=== PATIENT | male | born 1985 | race Caucasian/White ===

== ENCOUNTER 2017-04-06 18:41 | Emergency (ER) | payer SELFPAY ==
[2017-04-06] MEDS ORDERED: Sodium Chloride 0.9% 1,000 ML IV ONE (19:05)
--- NOTE | 2017-04-06 19:05 | EDM.PDOC ---
ED HPI GENERAL MEDICAL PROBLEM - General Chief Complaint: Abdominal Pain Stated Complaint: ABDOMINAL PAIN AND VOMITING Time Seen by Provider: 04/06/17 18:57 Source of Information: Reports: Patient History Limitations: Reports: No Limitations - History of Present Illness INITIAL COMMENTS - FREE TEXT/NARRATIVE: HISTORY AND PHYSICAL: History of present illness: [Patient comes to the emergency room complaining of right upper quadrant and epigastric abdominal pain. Thinks that he has pancreatitis. History of pancreatitis a couple of years ago and current symptoms are the same. His abdomen hasn't felt right for the past month but over the last week his symptoms have worsened. He drank "only a 6 pack" yesterday and has not had anything to drink today and overall feels worse. No fever or chills. He is vomiting bile and also having loose bilious stools. Has felt feverish and chilled but has not checked his temperature. No earaches sore throat or headache. No dizziness or fainting. No chest pain shortness of breath or difficulty breathing. No cough. Denies body aches, muscle and joint aches or pains. He admits to daily alcohol use 6-12 cans of beer on a workday, 12-18 beers on a weekend. States that he's been drinking a lot more than usual the past couple of weeks. Smokes one pack cigarettes daily] Review of systems: As per history of present illness and below otherwise all systems reviewed and negative. Past medical history: As per history of present illness and as reviewed below otherwise noncontributory. Surgical history: As per history of present illness and as reviewed below otherwise noncontributory. Social history: No reported history of drug or alcohol abuse. Family history: As per history of present illness and as reviewed below otherwise noncontributory. Physical exam: HEENT: Atraumatic, normocephalic. Oral mucous membranes moist, throat clear, neck supple, nontender, no lymphadenopathy. Lungs: Clear to auscultation, breath sounds equal bilaterally. Heart: S1S2, regular, negative for clicks, rubs, or JVD. Abdomen: Bowel sounds are normoactive throughout. Abdomen is soft and nondistended. Diffusely tender throughout his entire abdomen. No masses guarding or rebound. Back: Tender with percussion to right midthoracic back and right CVA. Pelvis: Stable nontender. Genitourinary: Deferred. Rectal: Deferred. Extremities: Atraumatic, negative for cords or calf pain. No swelling or tenderness. Neurovascular unremarkable. Neuro: Awake, alert, oriented. Motor and sensory unremarkable throughout. Exam nonfocal. Diagnostics: [CBC, CMP, UA, amylase, lipase, CT abdomen and pelvis with contrast] Therapeutics: [Toradol 30 mg IV, Zofran 4 mg IV, 1 L normal saline bolus, MS 4mg IV] Impression: [generalized abdominal pain] Plan: [CBC, CMP, UA, lactic acid, lipase, amylase are WNL. CT abdomen and pelvis with contrast shows no abnormalities. Discussed with patient that we'll discharge him to home with instructions to push fluids, avoid alcohol, avoid greasy, fatty foods and gradually increase diet as feeling improved. Strict return precautions are discussed with patient. He is in agreement with today's plan. All questions are answered and concerns are addressed.] Definitive disposition and diagnosis as appropriate pending reevaluation and review of above. Right Middle Abdominal Pain Score (Numeric/FACES): 7 - Related Data Allergies Allergy/AdvReac Type Severity Reaction Status Date / Time No Known Allergies Allergy Verified 04/06/17 18:51 Home Meds: Home Meds . [No Known Home Meds] 04/06/17 [History] ED ROS GENERAL - Review of Systems Review Of Systems: ROS reveals no pertinent complaints other than HPI. ED EXAM, GI/ABD - Physical Exam Exam: See Below Course - Vital Signs Last Recorded V/S: Last Vital Signs Temp 97.5 F 04/06/17 21:04 Pulse 83 04/06/17 21:04 Resp 16 04/06/17 21:04 BP 123/90 04/06/17 21:04 Pulse Ox 98 04/06/17 21:04 - Orders/Labs/Meds Orders: Active Orders 24 hr Category Date Time Status Abdomen Pelvis w Cont [CT] Stat Exams 04/06/17 19:21 Taken Labs: Laboratory Tests 04/06/17 04/06/17 04/06/17 Range/Units 19:05 19:18 19:18 WBC 6.65 (4.0-11.0) K/uL RBC 5.80 (4.50-5.90) M/uL Hgb 16.5 (13.0-17.0) g/dL Hct 46.8 (38.0-50.0) % MCV 80.7 (80.0-98.0) fL MCH 28.4 (27.0-32.0) pg MCHC 35.3 (31.0-37.0) g/dL RDW Std Deviation 39.7 (28.0-62.0) fl RDW Coeff of Liliana 13 (11.0-15.0) % Plt Count 266 (150-400) K/uL MPV 9.90 (7.40-12.00) fL Neut % (Auto) 77.0 (48.0-80.0) % Lymph % (Auto) 14.9 L (16.0-40.0) % [place] % (Auto) 6.6 (0.0-15.0) % Eos % (Auto) 1.2 (0.0-7.0) % Baso % (Auto) 0.3 (0.0-1.5) % Neut # (Auto) 5.1 (1.4-5.7) K/uL Lymph # (Auto) 1.0 (0.6-2.4) K/uL [place] # (Auto) 0.4 (0.0-0.8) K/uL Eos # (Auto) 0.1 (0.0-0.7) K/uL Baso # (Auto) 0.0 (0.0-0.1) K/uL Nucleated RBC % 0.0 /100WBC Nucleated RBCs # 0 K/uL Lactate (0.20-2.00) mmol/L Sodium 138 (136-146) mmol/L Potassium 4.1 (3.5-5.1) mmol/L Chloride 104 (98-110) mmol/L Carbon Dioxide 24 (21-31) mmol/L BUN 11 (6.0-23.0) mg/dL Creatinine 0.9 (0.6-1.5) mg/dL Est Cr Clr Drug Dosing 112.21 mL/min Estimated GFR (MDRD) > 60.0 ml/min Glucose 95 (60-110) mg/dL Calcium 10.0 (8.8-10.8) mg/dL Total Bilirubin 0.8 (0.1-1.5) mg/dL AST 29 (5-40) IU/L ALT 26 (8-54) IU/L Alkaline Phosphatase 64 (40-150) Total Protein 8.0 (6.0-8.0) g/dL Albumin 4.7 (3.5-5.0) g/dL Globulin 3.3 (2.0-3.5) g/dL Albumin/Globulin Ratio 1.4 (1.3-2.8) Amylase 63 (10-90) U/L Lipase 49 (7-80) U/L Urine Color YELLOW Urine Appearance CLEAR Urine pH 7.0 (5.0-8.0) Ur Specific [place] 1.020 (1.001-1.035) Urine Protein TRACE (NEGATIVE) mg/dL Urine Glucose (UA) NEGATIVE (NEGATIVE) mg/dL Urine Ketones NEGATIVE (NEGATIVE) mg/dL Urine Occult Blood NEGATIVE (NEGATIVE) Urine Nitrite NEGATIVE (NEGATIVE) Urine Bilirubin SMALL H (NEGATIVE) Urine Ictotest NEGATIVE Urine Urobilinogen 1.0 (<2.0) EU/dL Ur Leukocyte Esterase NEGATIVE (NEGATIVE) Urine RBC 0-1 (0-2/HPF) Urine WBC 02 (0-5/HPF) Ur Epithelial Cells RARE (NONE-FEW) Urine Bacteria RARE (NEGATIVE) Urine Mucus LIGHT (NONE-MOD) 04/06/17 Range/Units 19:18 WBC (4.0-11.0) K/uL RBC (4.50-5.90) M/uL Hgb (13.0-17.0) g/dL Hct (38.0-50.0) % MCV (80.0-98.0) fL MCH (27.0-32.0) pg MCHC (31.0-37.0) g/dL RDW Std Deviation (28.0-62.0) fl RDW Coeff of Liliana (11.0-15.0) % Plt Count (150-400) K/uL MPV (7.40-12.00) fL Neut % (Auto) (48.0-80.0) % Lymph % (Auto) (16.0-40.0) % [place] % (Auto) (0.0-15.0) % Eos % (Auto) (0.0-7.0) % Baso % (Auto) (0.0-1.5) % Neut # (Auto) (1.4-5.7) K/uL Lymph # (Auto) (0.6-2.4) K/uL [place] # (Auto) (0.0-0.8) K/uL Eos # (Auto) (0.0-0.7) K/uL Baso # (Auto) (0.0-0.1) K/uL Nucleated RBC % /100WBC Nucleated RBCs # K/uL Lactate 1.9 (0.20-2.00) mmol/L Sodium (136-146) mmol/L Potassium (3.5-5.1) mmol/L Chloride (98-110) mmol/L Carbon Dioxide (21-31) mmol/L BUN (6.0-23.0) mg/dL Creatinine (0.6-1.5) mg/dL Est Cr Clr Drug Dosing mL/min Estimated GFR (MDRD) ml/min Glucose (60-110) mg/dL Calcium (8.8-10.8) mg/dL Total Bilirubin (0.1-1.5) mg/dL AST (5-40) IU/L ALT (8-54) IU/L Alkaline Phosphatase (40-150) Total Protein (6.0-8.0) g/dL Albumin (3.5-5.0) g/dL Globulin (2.0-3.5) g/dL Albumin/Globulin Ratio (1.3-2.8) Amylase (10-90) U/L Lipase (7-80) U/L Urine Color Urine Appearance Urine pH (5.0-8.0) Ur Specific [place] (1.001-1.035) Urine Protein (NEGATIVE) mg/dL Urine Glucose (UA) (NEGATIVE) mg/dL Urine Ketones (NEGATIVE) mg/dL Urine Occult Blood (NEGATIVE) Urine Nitrite (NEGATIVE) Urine Bilirubin (NEGATIVE) Urine Ictotest Urine Urobilinogen (<2.0) EU/dL Ur Leukocyte Esterase (NEGATIVE) Urine RBC (0-2/HPF) Urine WBC (0-5/HPF) Ur Epithelial Cells (NONE-FEW) Urine Bacteria (NEGATIVE) Urine Mucus (NONE-MOD) Meds: Medications Discontinued Medications Generic Name Dose Route Start Last Admin Trade Name Freq PRN Reason Stop Dose Admin Sodium Chloride 1,000 mls @ 999 mls/hr 04/06/17 19:05 04/06/17 19:24 Normal Saline IV 04/06/17 20:05 999 mls/hr STAT ONE Administration Iopamidol 94 ml 04/06/17 20:21 04/06/17 20:21 Isovue Multipack-370 (76%) IVPUSH 04/06/17 20:22 94 ml ONETIME STA Administration Ketorolac Tromethamine 30 mg 04/06/17 19:25 04/06/17 19:46 Toradol IVPUSH 04/06/17 19:26 30 mg ONETIME ONE Administration Morphine Sulfate 4 mg 04/06/17 20:20 04/06/17 20:26 Morphine IV 04/06/17 20:21 4 mg ONETIME ONE Administration Ondansetron HCl 4 mg 04/06/17 19:25 04/06/17 19:46 Zofran IVPUSH 04/06/17 19:26 4 mg ONETIME ONE Administration Departure - Departure Time of Disposition: 21:00 Disposition: Home, Self-Care 01 Condition: Good Clinical Impression: Abdominal pain - Discharge Information Instructions: Abdominal Pain, Adult, [id number] Referrals: PCP,None [Primary Care Provider] - Forms: ED Department Discharge Additional Instructions: The following information is given to patients seen in the emergency department who are being discharged to home. This information is to outline your options for follow-up care. We provide all patients seen in our emergency department with a follow-up referral. The need for follow-up, as well as the timing and circumstances, are variable depending upon the specifics of your emergency department visit. If you don't have a primary care physician on staff, we will provide you with a referral. We always advise you to contact your personal physician following an emergency department visit to inform them of the circumstance of the visit and for follow-up with them and/or the need for any referrals to a consulting specialist. The emergency department will also refer you to a specialist when appropriate. This referral assures that you have the opportunity for follow-up care with a specialist. All of these measure are taken in an effort to provide you with optimal care, which includes your follow-up. Under all circumstances we always encourage you to contact your private physician who remains a resource for coordinating your care. When calling for follow-up care, please make the office aware that this follow-up is from your recent emergency room visit. If for any reason you are refused follow-up, please contact the [facility] emergency department at and asked to speak to the emergency department charge nurse. [address] [address] Establish care with a primary care provider at the clinic listed above. Follow- up there in 48-72 hours. Push fluids, avoid alcohol, avoid greasy fatty foods. May gradually increase diet as tolerated. Return to ER as needed as discussed. - My Orders Last 24 Hours: My Active Orders 04/06/17 19:21 Abdomen Pelvis w Cont [CT] Stat - Assessment/Plan Last 24 Hours: My Active Orders 04/06/17 19:21 Abdomen Pelvis w Cont [CT] Stat
[2017-04-06] MEDS ORDERED: Ondansetron 4 MG/2 ML SDV IVPUSH ONE (19:25)
[2017-04-06] MEDS ORDERED: Ketorolac 30 MG/ML SDV IVPUSH ONE (19:25)
[2017-04-06 19:52] LABS: CHLORIDE,CL 104 mmol/L (98-110); SODIUM,NA 138 mmol/L (136-146)
[2017-04-06] MEDS ORDERED: Morphine 10 MG/ML Syringe IV ONE (20:20)
[2017-04-06] MEDS ORDERED: Iopamidol 755 MG/ML 500 ML Multipack Bottle IVPUSH STA (20:21)
[2017-04-06 21:07] VITALS: BP 123/90
--- NOTE | 2017-04-08 12:24 | CT ---
EXAM DATE: 04/06/17 PATIENT'S AGE: 32 Patient: EARLINE CASTANEDA Facility: [place], [place] Site . Site : 1985 Study: CT Abdomen/Pelvis W CONT [id number]/26/2017 8:25:29 PM Ordering Physician: Doctor Ortez Final Report: INDICATION: Increased cecum and abdominal pain TECHNIQUE: CT abdomen and pelvis acquired with 94 cc Isovue 370 IV contrast. COMPARISON: None FINDINGS: Lower chest: Unremarkable. Liver: Hepatic steatosis. Spleen: Unremarkable. Pancreas: Unremarkable. Gallbladder and bile ducts: Unremarkable. Adrenal glands: Unremarkable. Kidneys: Unremarkable. GI tract: Unremarkable. Appendix is normal. Vascular structures: Unremarkable. Lymph nodes: Unremarkable. Miscellaneous: Unremarkable. No free air or significant free fluid. Pelvic Organs: Unremarkable. Bones: Unremarkable for age. IMPRESSION: No acute intra-abdominal process identified. Hepatic steatosis. Please note that all CT scans at this facility use dose modulation, iterative reconstruction, and/or weight-based dosing when appropriate to reduce radiation dose to as low as reasonably achievable. Dictated by Patience Lentz MD @ Apr 06 2017 8:32PM (Electronic Signature) Report Signed by Proxy. [facility]
== END 2017-04-06 21:04 | disposition home or self-care (01) ==
LOC: MW.ED 18:41
DX: R10.84 Generalized abdominal pain (principal); R10.11 Right upper quadrant pain; R10.13 Epigastric pain; F17.210 Nicotine dependence, cigarettes, uncomplicated
CPT/HCPCS: 36415; 74177; 80053; 81001; 82150; 83605; 83690; 85025; 96361; 96374; 96375; 99284; J1885; J2270; J2405; J7040; Q9967; 99283

== ENCOUNTER 2017-04-16 18:20 | Emergency (ER) | payer SELFPAY ==
[2017-04-16] MEDS ORDERED: Ondansetron 4 MG/2 ML SDV IVPUSH ONE (18:55)
[2017-04-16] MEDS ORDERED: Sodium Chloride 0.9% 1,000 ML IV ONE (18:55)
--- NOTE | 2017-04-16 19:16 | EDM.PDOC ---
ED HPI GENERAL MEDICAL PROBLEM - General Chief Complaint: Abdominal Pain Stated Complaint: ABDOMINAL PAIN/VOMITING Time Seen by Provider: 04/16/17 18:25 Source of Information: Reports: Patient History Limitations: Reports: No Limitations - History of Present Illness INITIAL COMMENTS - FREE TEXT/NARRATIVE: History of present illness: [32-year-old male comes in complaining of epigastric pain. Patient has had a history of being worked up for abdominal pain and gallbladder disease without any significant findings. Patient CT was negative, as well as ultrasound.] Review of systems: As per history of present illness and below otherwise all systems reviewed and negative. Past medical history: As per history of present illness and as reviewed below otherwise noncontributory. Surgical history: As per history of present illness and as reviewed below otherwise noncontributory. Social history: No reported history of drug or alcohol abuse. Family history: As per history of present illness and as reviewed below otherwise noncontributory. Physical exam: HEENT: Atraumatic, normocephalic, pupils reactive, negative for conjunctival pallor or scleral icterus, mucous membranes moist, throat clear, neck supple, nontender, trachea midline. Lungs: Clear to auscultation, breath sounds equal bilaterally, chest nontender. Heart: S1S2, regular, negative for clicks, rubs, or JVD. Abdomen: Soft, nondistended, nontender. Negative for masses or hepatosplenomegaly. Negative for costovertebral tenderness. Pelvis: Stable nontender. Genitourinary: Deferred. Rectal: Deferred. Extremities: Atraumatic, negative for cords or calf pain. Neurovascular unremarkable. Neuro: Awake, alert, oriented. Cranial nerves II through XII unremarkable. Cerebellum unremarkable. Motor and sensory unremarkable throughout. Exam nonfocal. Global assessment is benign save the subjective complaint as noted in history of present illness Diagnostics: [CBC, CMP, amylase, lipase] Therapeutics: [IV fluid, Zofran] Impression: [Abdominal pain/gastritis] Plan: [Follow-up with PCP avoid food triggers] Definitive disposition and diagnosis as appropriate pending reevaluation and review of above. RUQ Abdominal Pain Pain Score (Numeric/FACES): 6 - Related Data Allergies Allergy/AdvReac Type Severity Reaction Status Date / Time No Known Allergies Allergy Verified 04/16/17 18:42 Home Meds: Home Meds . [No Known Home Meds] 04/06/17 [History] Past Medical History Gastrointestinal History: Reports: Pancreatitis Neurological History: Reports: Concussion - Infectious Disease History Infectious Disease History: Reports: Chicken Pox Social & Family History - Family History Family Medical History: Noncontributory - Tobacco Use Smoking Status *Q: Current Every Day Smoker Years of Tobacco use: 10 Packs/Tins Daily: 1 - Caffeine Use Caffeine Use: Reports: Coffee - Recreational Drug Use Recreational Drug Use: No ED ROS GENERAL - Review of Systems Review Of Systems: See Below (See history of present illness) ED EXAM, GI/ABD - Physical Exam Exam: See Below (See history of present illness) Course - Vital Signs Last Recorded V/S: Last Vital Signs Temp 36.7 C 04/16/17 18:46 Pulse 71 04/16/17 18:46 Resp 18 04/16/17 18:46 BP 100/59 L 04/16/17 18:46 Pulse Ox 97 04/16/17 18:46 - Orders/Labs/Meds Labs: Laboratory Tests 04/16/17 04/16/17 Range/Units 19:16 19:16 WBC 6.41 (4.0-11.0) K/uL RBC 5.46 (4.50-5.90) M/uL Hgb 15.5 (13.0-17.0) g/dL Hct 44.2 (38.0-50.0) % MCV 81.0 (80.0-98.0) fL MCH 28.4 (27.0-32.0) pg MCHC 35.1 (31.0-37.0) g/dL RDW Std Deviation 39.3 (28.0-62.0) fl RDW Coeff of Liliana 13 (11.0-15.0) % Plt Count 252 (150-400) K/uL MPV 9.90 (7.40-12.00) fL Neut % (Auto) 68.9 (48.0-80.0) % Lymph % (Auto) 18.9 (16.0-40.0) % [place] % (Auto) 8.3 (0.0-15.0) % Eos % (Auto) 3.6 (0.0-7.0) % Baso % (Auto) 0.3 (0.0-1.5) % Neut # (Auto) 4.4 (1.4-5.7) K/uL Lymph # (Auto) 1.2 (0.6-2.4) K/uL [place] # (Auto) 0.5 (0.0-0.8) K/uL Eos # (Auto) 0.2 (0.0-0.7) K/uL Baso # (Auto) 0.0 (0.0-0.1) K/uL Nucleated RBC % 0.0 /100WBC Nucleated RBCs # 0 K/uL Sodium 139 (136-146) mmol/L Potassium 4.0 (3.5-5.1) mmol/L Chloride 107 (98-110) mmol/L Carbon Dioxide 21 (21-31) mmol/L BUN 8 (6.0-23.0) mg/dL Creatinine 0.8 (0.6-1.5) mg/dL Est Cr Clr Drug Dosing 130.63 mL/min Estimated GFR (MDRD) > 60.0 ml/min Glucose 78 (60-110) mg/dL Calcium 9.2 (8.8-10.8) mg/dL Total Bilirubin 0.5 (0.1-1.5) mg/dL AST 23 (5-40) IU/L ALT 24 (8-54) IU/L Alkaline Phosphatase 52 (40-150) Total Protein 7.2 (6.0-8.0) g/dL Albumin 4.3 (3.5-5.0) g/dL Globulin 2.9 (2.0-3.5) g/dL Albumin/Globulin Ratio 1.5 (1.3-2.8) Amylase 52 (10-90) U/L Lipase 32 (7-80) U/L Meds: Medications Discontinued Medications Generic Name Dose Route Start Last Admin Trade Name Freq PRN Reason Stop Dose Admin Sodium Chloride 1,000 mls @ 999 mls/hr 04/16/17 18:55 Normal Saline IV 04/16/17 19:55 STAT ONE Ondansetron HCl 8 mg 04/16/17 18:55 Zofran IVPUSH 04/16/17 18:56 ONETIME ONE Departure - Departure Time of Disposition: 20:22 Disposition: Home, Self-Care 01 Condition: Good Clinical Impression: Abdominal pain - Discharge Information Instructions: Abdominal Pain, Adult, [id number] Referrals: PCP,None [Primary Care Provider] - Forms: ED Department Discharge Additional Instructions: The following information is given to patients seen in the emergency department who are being discharged to home. This information is to outline your options for follow-up care. We provide all patients seen in our emergency department with a follow-up referral. The need for follow-up, as well as the timing and circumstances, are variable depending upon the specifics of your emergency department visit. If you don't have a primary care physician on staff, we will provide you with a referral. We always advise you to contact your personal physician following an emergency department visit to inform them of the circumstance of the visit and for follow-up with them and/or the need for any referrals to a consulting specialist. The emergency department will also refer you to a specialist when appropriate. This referral assures that you have the opportunity for follow-up care with a specialist. All of these measure are taken in an effort to provide you with optimal care, which includes your follow-up. Under all circumstances we always encourage you to contact your private physician who remains a resource for coordinating your care. When calling for follow-up care, please make the office aware that this follow-up is from your recent emergency room visit. If for any reason you are refused follow-up, please contact the [facility] Emergency Department at and asked to speak to the emergency department charge nurse. Follow-up with PCP in 1-2 days Avoid food triggers as discussed Return to ED as needed as discussed
[2017-04-16 19:46] LABS: CHLORIDE,CL 107 mmol/L (98-110); SODIUM,NA 139 mmol/L (136-146)
[2017-04-16 22:12] VITALS: BP 95/54
== END 2017-04-16 20:27 | disposition home or self-care (01) ==
LOC: MW.ED 18:20
DX: R10.13 Epigastric pain (principal); R10.11 Right upper quadrant pain; F17.210 Nicotine dependence, cigarettes, uncomplicated
CPT/HCPCS: 36415; 80053; 82150; 83690; 85025; 99283; 99284

== ENCOUNTER 2017-07-22 14:18 | Emergency (ER) | payer SELFPAY ==
--- NOTE | 2017-07-22 14:33 | EDM.PDOC ---
ED HPI GENERAL MEDICAL PROBLEM - General Chief Complaint: Gastrointestinal Problem Stated Complaint: ABDOMINAL PAIN AND VOMITING Time Seen by Provider: 07/22/17 14:57 - History of Present Illness INITIAL COMMENTS - FREE TEXT/NARRATIVE: 32 yo male presents to ED complaining of bloody diarrhea, hematemasis and abdominal pain. Symptoms began 4-5 days ago. He has been having 5-10 BM's per day and every time there is at least some amounts of blood. Sometimes there is large amount of blood coating stool and mixed into in but sometimes there is just small amount mixed in. His last bloody BM was earlier today. He has had appetite loss, chills, night sweats and melena. He had similar symptoms about 2 months ago but had normal labs and CT abdomen with contrast other than mild transamenitis and steatohepatitis. He is adopted and has no knowledge of family history. He admits to drinking 12 beers about 2-3x per weak. His last time consuming alcohol was 6 days ago. He is a previous smoker with 10 pack year history but he quit 1 month ago. Abdominal Pain Score (Numeric/FACES): 7 - Related Data Allergies Allergy/AdvReac Type Severity Reaction Status Date / Time No Known Allergies Allergy Verified 07/22/17 14:46 Home Meds: Home Meds Ondansetron [Zofran] 4 mg PO Q6H 3 Days #12 tab 07/22/17 [Rx] Past Medical History Gastrointestinal History: Reports: Pancreatitis Neurological History: Reports: Concussion - Infectious Disease History Infectious Disease History: Reports: Chicken Pox Social & Family History - Family History Family Medical History: Noncontributory - Tobacco Use Smoking Status *Q: Current Every Day Smoker Years of Tobacco use: 10 Packs/Tins Daily: 1 - Caffeine Use Caffeine Use: Reports: Coffee - Recreational Drug Use Recreational Drug Use: No ED ROS GENERAL - Review of Systems Review Of Systems: See Below Constitutional: Reports: Weakness, Night Sweats, Decreased Appetite HEENT: Reports: No Symptoms Respiratory: Reports: No Symptoms Cardiovascular: Reports: No Symptoms Endocrine: Reports: No Symptoms GI/Abdominal: Reports: Abdominal Pain, Bloody Stool, Diarrhea, Decreased Appetite, Hematemesis, Hematochezia, Melena, Nausea, Vomiting : Reports: No Symptoms Musculoskeletal: Reports: No Symptoms Skin: Reports: No Symptoms Neurological: Reports: No Symptoms Psychiatric: Reports: No Symptoms Hematologic/Lymphatic: Reports: No Symptoms Immunologic: Reports: No Symptoms ED EXAM, GENERAL - Physical Exam Exam: See Below Exam Limited By: No Limitations General Appearance: Alert, WD/WN, No Apparent Distress Eye Exam: Bilateral Eye: Normal Inspection Ears: Normal External Exam, Hearing Grossly Normal Nose: Normal Inspection, Normal Mucosa, No Blood Throat/Mouth: Normal Oropharynx, Normal Voice, No Airway Compromise, Other (dry mucosa ) Head: Atraumatic, Normocephalic Neck: Normal Inspection, Supple, Non-Tender, Full Range of Motion Respiratory/Chest: No Respiratory Distress, Lungs Clear, Normal Breath Sounds, No Accessory Muscle Use Cardiovascular: Normal Peripheral Pulses, Regular Rate, Rhythm, No Edema, No Gallop, No JVD, No Murmur, No Rub Peripheral Pulses: 2+: Carotid (L), Carotid (R), Radial (L), Radial (R) GI/Abdominal: Normal Bowel Sounds, No Organomegaly, No Distention, Tender (LLQ) . No: Distended, Hepatomegaly, Splenomegaly Rectal (Males) Exam: Other (increased rectal tone). No: Hemorrhoids, Rectal Fissure Back Exam: Normal Inspection, Full Range of Motion Extremities: Normal Inspection, Normal Range of Motion, Non-Tender, Normal Capillary Refill, No Pedal Edema Neurological: Alert, Oriented, CN II-XII Intact, Normal Gait, Normal Reflexes Psychiatric: Normal Affect, Normal Mood Skin Exam: Warm, Dry, Intact, No Rash Lymphatic: No Adenopathy Course - Vital Signs Last Recorded V/S: Last Vital Signs Temp 36.7 C 07/22/17 14:42 Pulse 85 07/22/17 15:10 Resp 16 07/22/17 15:10 BP 129/88 07/22/17 15:10 Pulse Ox 97 07/22/17 15:10 - Orders/Labs/Meds Orders: Active Orders 24 hr Category Date Time Status UA W/MICROSCOPIC [URIN] Stat Lab 07/22/17 16:47 Results Labs: Laboratory Tests 07/22/17 07/22/17 07/22/17 Range/Units 15:05 15:05 16:47 WBC 8.82 (4.0-11.0) K/uL RBC 5.54 (4.50-5.90) M/uL Hgb 16.2 (13.0-17.0) g/dL Hct 45.1 (38.0-50.0) % MCV 81.4 (80.0-98.0) fL MCH 29.2 (27.0-32.0) pg MCHC 35.9 (31.0-37.0) g/dL RDW Std Deviation 40.2 (28.0-62.0) fl RDW Coeff of Liliana 14 (11.0-15.0) % Plt Count 239 (150-400) K/uL MPV 9.80 (7.40-12.00) fL Neut % (Auto) 79.7 (48.0-80.0) % Lymph % (Auto) 10.2 L (16.0-40.0) % Mclennan % (Auto) 8.2 (0.0-15.0) % Eos % (Auto) 1.8 (0.0-7.0) % Baso % (Auto) 0.1 (0.0-1.5) % Neut # (Auto) 7.0 H (1.4-5.7) K/uL Lymph # (Auto) 0.9 (0.6-2.4) K/uL Mclennan # (Auto) 0.7 (0.0-0.8) K/uL Eos # (Auto) 0.2 (0.0-0.7) K/uL Baso # (Auto) 0.0 (0.0-0.1) K/uL Nucleated RBC % 0.0 /100WBC Nucleated RBCs # 0 K/uL ESR 1 (0-14) mm/hr Sodium 135 L (136-146) mmol/L Potassium 4.0 (3.5-5.1) mmol/L Chloride 102 (98-110) mmol/L Carbon Dioxide 23 (21-31) mmol/L BUN 10 (6.0-23.0) mg/dL Creatinine 0.8 (0.6-1.5) mg/dL Est Cr Clr Drug Dosing 126.23 mL/min Estimated GFR (MDRD) > 60.0 ml/min Glucose 95 (60-110) mg/dL Calcium 9.7 (8.8-10.8) mg/dL Total Bilirubin 1.5 (0.1-1.5) mg/dL AST 60 H (5-40) IU/L ALT 60 H (8-54) IU/L Alkaline Phosphatase 61 (40-150) C-Reactive Protein 0.10 (0.0-0.5) mg/dL Total Protein 7.8 (6.0-8.0) g/dL Albumin 4.4 (3.5-5.0) g/dL Globulin 3.4 (2.0-3.5) g/dL Albumin/Globulin Ratio 1.3 (1.3-2.8) Lipase 36 (7-80) U/L Urine Color DARK YELLOW Urine Appearance CLEAR Urine pH 6.5 (5.0-8.0) Ur Specific Reading 1.020 (1.001-1.035) Urine Protein NEGATIVE (NEGATIVE) mg/dL Urine Glucose (UA) NEGATIVE (NEGATIVE) mg/dL Urine Ketones NEGATIVE (NEGATIVE) mg/dL Urine Occult Blood NEGATIVE (NEGATIVE) Urine Nitrite NEGATIVE (NEGATIVE) Urine Bilirubin NEGATIVE (NEGATIVE) Urine Urobilinogen 0.2 (<2.0) EU/dL Ur Leukocyte Esterase NEGATIVE (NEGATIVE) Meds: Medications Discontinued Medications Generic Name Dose Route Start Last Admin Trade Name Freq PRN Reason Stop Dose Admin Sodium Chloride 1,000 mls @ 999 mls/hr 07/22/17 14:56 07/22/17 15:12 Normal Saline IV 07/22/17 15:56 999 mls/hr .BOLUS ONE Administration Morphine Sulfate 1 mg 07/22/17 16:11 07/22/17 16:55 Morphine IVPUSH 07/22/17 16:12 Not Given ONETIME ONE Ondansetron HCl 4 mg 07/22/17 14:55 07/22/17 15:15 Zofran IVPUSH 07/22/17 14:56 4 mg ONETIME ONE Administration Departure - Departure Time of Disposition: 16:27 Disposition: DC/Tfer W/I Hosp To Swing 61 Clinical Impression: Diffuse abdominal pain, Bloody diarrhea, Hematemesis with nausea, Elevated LFTs - Discharge Information Prescriptions: Ondansetron [Zofran] 4 mg PO Q6H 3 Days #12 tab Instructions: Abdominal Pain, Adult, [id number] Referrals: PCP,None [Primary Care Provider] - Genna Mayes MD [Physician] - (appointment scheduled for 07/23/17 at 1:00 pm - location at [address] ) Forms: ED Department Discharge Additional Instructions: The following information is given to patients seen in the emergency department who are being discharged to home. This information is to outline your options for follow-up care. We provide all patients seen in our emergency department with a follow-up referral. The need for follow-up, as well as the timing and circumstances, are variable depending upon the specifics of your emergency department visit. If you don't have a primary care physician on staff, we will provide you with a referral. We always advise you to contact your personal physician following an emergency department visit to inform them of the circumstance of the visit and for follow-up with them and/or the need for any referrals to a consulting specialist. The emergency department will also refer you to a specialist when appropriate. This referral assures that you have the opportunity for followup care with a specialist. All of these measure are taken in an effort to provide you with optimal care, which includes your followup. Under all circumstances we always encourage you to contact your private physician who remains a resource for coordinating your care. When calling for followup care, please make the office aware that this follow-up is from your recent emergency room visit. If for any reason you are refused follow-up, please contact the [facility] emergency department at and asked to speak to the emergency department charge nurse. - Problem List Review Problem List Initiated/Reviewed/Updated: Yes - My Orders Last 24 Hours: My Active Orders 07/22/17 16:47 UA W/MICROSCOPIC [URIN] Stat - Assessment/Plan Last 24 Hours: My Active Orders 07/22/17 16:47 UA W/MICROSCOPIC [URIN] Stat Plan: Diagnostics: CBC, CMP, Lipase, ESR, CRP, UA Therapeutics: IV NS 1L bolus x1, Zofran 4 mg IV single dose, morphine 1 mg IV single dose Assessment: 1. Diffuse Abdominal Pain 2. Bloody Diarrhea 3. Hematemasis 4. Elevated LFT 5. Alcohol Use disorder -vitals stable, abdominal/gu/rectal exam findings relatively benign -CBC/CMP/ESR/CRP wnl except for mildly elevated LFT's -CT Abdomen-Pelvis with contrast from 04/07/17 wnl except for steatohepatitis -symptoms improved with with IVF, Zofran and Morphine Plan: -Patients symptoms improved therefore will discharge home under care of girlfriend -scheduled for f/u appointment tomorow with Dr. Mayes, General surgery -prescribed zofran PRN for vomiting -provided education and reassurance -instructed patient to return to ED or seek medical care if any development of uncontrolled fever, diarrhea, vomiting, hematemasis or bloody stool
[2017-07-22] MEDS ORDERED: Ondansetron 4 MG/2 ML SDV IVPUSH ONE (14:55)
[2017-07-22] MEDS ORDERED: Sodium Chloride 0.9% 1,000 ML IV ONE (14:56)
[2017-07-22 15:47] LABS: CHLORIDE,CL 102 mmol/L (98-110); SODIUM,NA 135 mmol/L (136-146)
[2017-07-22] MEDS ORDERED: Morphine 2 MG/ML Syringe IVPUSH ONE ×2 (16:11→17:29)
[2017-07-22] MEDS ORDERED: Morphine 2 MG/ML Syringe ONE (17:30)
[2017-07-22 17:52] VITALS: BP 104/76
== END 2017-07-22 17:46 | disposition home or self-care (01) ==
LOC: MW.ED 14:18
DX: K92.0 Hematemesis (principal); R79.89 Other specified abnormal findings of blood chemistry; R19.5 Other fecal abnormalities; F17.210 Nicotine dependence, cigarettes, uncomplicated; R10.9 Unspecified abdominal pain
CPT/HCPCS: 80053; 81001; 83690; 85025; 85652; 86140; 96361; 96374; 96375; 99284; J2270; J2405; J7040

== ENCOUNTER 2017-08-21 08:04 | Day surgery (SDC) | payer SELFPAY ==
[~2017-08-21 08:04] MED LIST: Lactated Ringers 1,000 ML IV SCH; Lidocaine 2% 5 ML SDV ONE; Propofol 200 MG/20 ML SDV ONE; Sodium Chloride 0.9% 10 ML Syringe FLUSH PRN; Sodium Chloride 0.9% 2.5 ML Syringe FLUSH PRN; fentaNYL 100 MCG/2 ML SDV ONE
--- NOTE | 2017-08-21 08:26 | PCM.PREANE ---
Preanesthetic Assessment - Anesthesia/Transfusion/Family Hx Anesthesia History: Prior Anesthesia Without Reaction Other Type of Anesthesia Reaction Comment: Pt adopted, unsure of family hx Family History of Anesthesia Reaction: No Transfusion History: No Prior Transfusion(s) Intubation History: Unknown - Review of Systems General: No Symptoms Pulmonary: No Symptoms Cardiovascular: No Symptoms Gastrointestinal: Diarrhea, Vomiting Neurological: No Symptoms Other: Reports: None - Physical Assessment NPO Status Date: 08/20/17 NPO Status Time: 22:00 O2 Sat by Pulse Oximetry: 98 Respiratory Rate: 18 Vital Signs: Last Vital Signs Temp 36.2 C 08/21/17 08:17 Pulse 88 08/21/17 08:17 Resp 18 08/21/17 08:17 BP 110/75 08/21/17 08:17 Pulse Ox 98 08/21/17 08:17 Height: 1.68 m Weight: 76.657 kg ASA Class: 2 Mental Status: Alert & Oriented x3 Airway Class: Mallampati = 1 Dentition: Reports: Normal Dentition Thyro-Mental Finger Breadths: 3 Mouth Opening Finger Breadths: 3 ROM/Head Extension: Full Lungs: Clear to Auscultation, Normal Respiratory Effort Cardiovascular: Regular Rate, Regular Rhythm - Allergies Allergies/Adverse Reactions: Allergies Allergy/AdvReac Type Severity Reaction Status Date / Time No Known Allergies Allergy Verified 07/22/17 14:46 - Blood Blood Available: No - Anesthesia Plan Pre-Op Medication Ordered: None - Acknowledgements Anesthesia Type Planned: MAC Pt an Appropriate Candidate for the Planned Anesthesia: Yes Alternatives and Risks of Anesthesia Discussed w Pt/Guardian: Yes Pt/Guardian Understands and Agrees with Anesthesia Plan: Yes PreAnesthesia Questionnaire HEENT History: Reports: None Cardiovascular History: Reports: None Respiratory History: Reports: None Gastrointestinal History: Reports: GERD Genitourinary History: Reports: None Neurological History: Reports: Concussion Endocrine/Metabolic History: Reports: None Hematologic History: Reports: None Oncologic (Cancer) History: Reports: None - Infectious Disease History Infectious Disease History: Reports: Chicken Pox - Past Surgical History Head Surgeries/Procedures: Reports: None Respiratory Surgical History: Reports: None Male Surgical History: Reports: None Musculoskeletal Surgical History: Reports: Other (See Below) Other Musculoskeletal Surgeries/Procedures:: surgical tx for fx hand with plate and screws - SUBSTANCE USE Smoking Status *Q: Former Smoker (quit smoking 7-8 weeks ago) Tobacco Use Within Last Twelve Months: Cigarettes Days Per Week of Alcohol Use: 2 Number of Drinks Per Day: 12 Total Drinks Per Week: 24 Recreational Drug Use History: No - HOME MEDS Home Medications: Home Meds Pantoprazole Sodium [Protonix] 1 tab PO DAILY 08/19/17 [History] - CURRENT (IN HOUSE) MEDS Current Meds: Current Medications Lactated Ringer's (Ringers, Lactated) 1,000 mls @ 125 mls/hr IV ASDIRECTED DEANGELO Last Admin: 08/21/17 08:19 Dose: 125 mls/hr Sodium Chloride (Saline Flush) 10 ml FLUSH ASDIRECTED PRN PRN Reason: Keep Vein Open Sodium Chloride (Saline Flush) 2.5 ml FLUSH ASDIRECTED PRN PRN Reason: Keep Vein Open Sodium Chloride (Saline Flush) 10 ml FLUSH ASDIRECTED PRN PRN Reason: Keep Vein Open Sodium Chloride (Saline Flush) 2.5 ml FLUSH ASDIRECTED PRN PRN Reason: Keep Vein Open Discontinued Medications Fentanyl (Sublimaze) Confirm Administered Dose 100 mcg .ROUTE .STK-MED ONE Stop: 08/21/17 07:25 Lidocaine (Xylocaine-Mpf 2%) Confirm Administered Dose 5 ml .ROUTE .STK-MED ONE Stop: 08/21/17 07:23 Propofol (Diprivan 20 Ml) Confirm Administered Dose 400 mg .ROUTE .STK-MED ONE Stop: 08/21/17 07:23
[2017-08-21] MEDS ORDERED: Propofol 200 MG/20 ML SDV ONE (09:44)
--- NOTE | 2017-08-21 10:13 | PCM.OPNOTE ---
- General Post-Op/Procedure Note Date of Surgery/Procedure: 08/21/17 Operative Procedure(s): Diagnostic egd and colonoscopy Findings: Normal EGD and colonoscopy Pre Op Diagnosis: Diarrhea, nausea and vomiting Post-Op Diagnosis: Normal EGD and colonoscopy Anesthesia Technique: ARIELA Primary Surgeon: Genna Mayes Condition: Good
[2017-08-21 10:34] VITALS: BP 92/60
--- NOTE | 2017-08-21 14:15 | OR ---
SURGEON: ALEAXNDRIA GROSSMAN MD DATE OF PROCEDURE: 08/21/2017 PREOPERATIVE DIAGNOSES: Nausea, vomiting, and diarrhea. POSTOPERATIVE DIAGNOSES: Nausea, vomiting, and diarrhea. PROCEDURE PERFORMED: Diagnostic esophagogastroduodenoscopy and colonoscopy. ANESTHESIA: MAC. INSTRUMENT USED: Olympus endoscope and colonoscope. EXTENT OF EXAM: To the second portion of duodenum, to the cecum. PREPARATION: Good. LIMITATIONS: None. INDICATIONS FOR EXAMINATION: The patient is a 32-year-old male, who presents with several months of nausea, vomiting, and diarrhea. He complains of hematemesis and hematochezia. An extensive workup including blood cultures, imaging studies, and stool cultures have all been normal. A decision was made to perform a diagnostic EGD and colonoscopy. The patient and I discussed the procedures as well as expected perioperative course. We discussed the risks, including bleeding, infection, or damage to surrounding structures, including perforation. The patient verbalized understanding and wishes to proceed. PROCEDURE IN DETAIL: The patient was brought into the endoscopy suite and placed in a beach chair position. A time-out was completed verifying the patient's name, age, date of , allergies, and procedure to be performed. Monitored anesthesia care was induced and continuous oxygen was provided via nasal cannula throughout the procedure. Before the patient was asleep, a bite block was placed in his mouth. After adequate sedation was achieved, a well lubricated endoscope was placed in the patient's mouth and advanced under direct visualization to the second portion of the duodenum. This appeared normal and a photograph was taken. The scope was then fully withdrawn while examining the color, texture, anatomy, and integrity of the upper GI tract. The duodenal bulb, and remainder of the duodenal mucosa appeared normal. The scope was brought into the stomach and a photograph was taken of the pylorus and GE junction. Both appeared normal. The gastric mucosa was healthy appearing with no evidence of inflammation or ulceration. Biopsies were taken of the gastric, antrum, body, and fundus and sent for H. pylori testing. The scope was then brought out of the distal esophagus and a photograph taken of the GE junction, which appeared normal. The remainder of the esophageal mucosa was free of pathology. The scope was then removed and this portion of the procedure terminated. The patient was placed in the left lateral decubitus position. A digital rectal exam was performed, which was within normal limits. A well lubricated colonoscope was then inserted into the rectum and advanced under direct visualization to the level of the cecum. The cecum was identified by both visual and anatomic landmarks. The terminal ileum appeared normal. The scope was then fully withdrawn while examining the color, texture, anatomy, and integrity of the mucosa from the cecum to the anal canal. The findings were consistent with normal colonic mucosa. The scope was brought into the rectum and retroflexed to allow visualization of the anal canal opening. This appeared normal without any significant hemorrhoidal disease. The scope was then straightened out and fully withdrawn. The patient tolerated the procedure well and was taken to PACU in stable condition. The cecum to anus time was 9 minutes. ENDOSCOPIC DIAGNOSES: Nausea, vomiting, and diarrhea. RECOMMENDATIONS: I discussed these findings with the patient. Given all of my normal findings, the next step would be to have the patient evaluated by a bus cleaner for further evaluation. I will put in a referral and call the patient with the results of the gastric biopsies. MT DAVIS /[id number]
== END 2017-08-21 10:45 | disposition home or self-care (01) ==
LOC: MW.SDS 08:04
PROVIDERS: ATTEND Surgery
DX: K52.9 Noninfective gastroenteritis and colitis, unspecified (principal); K62.5 Hemorrhage of anus and rectum; K92.0 Hematemesis; R10.9 Unspecified abdominal pain; K21.9 Gastro-esophageal reflux disease without esophagitis; Z79.899 Other long term (current) drug therapy; Z87.891 Personal history of nicotine dependence
CPT/HCPCS: 43239; 45378; 88305; 88312; J3010; J7120; 00813; J2704

== ENCOUNTER 2017-11-21 15:20 | Emergency (ER) | payer SELFPAY ==
[2017-11-21 15:40] VITALS: BP 121/77
--- NOTE | 2017-11-21 16:03 | EDM.PDOC ---
ED HPI GENERAL MEDICAL PROBLEM - General Chief Complaint: General Stated Complaint: ORAL PAIN Time Seen by Provider: 11/21/17 15:36 Source of Information: Reports: Patient History Limitations: Reports: No Limitations - History of Present Illness INITIAL COMMENTS - FREE TEXT/NARRATIVE: HISTORY AND PHYSICAL: History of present illness: Patient is a 32-year-old male who presents to the emergency room today with complaints of sinus pressure, chest congestion and sore throat times one and a half weeks. The pain started in his ears went to his maxillary sinus cavities and then into his left jaw. He is concerned he may have a tooth infection or pneumonia. He states he has used [id number] cold medication and has not felt any improvement. Denies any fever, chills, chest pain or shortness of breath. Denies any abdominal pain, nausea, vomiting or diarrhea or constipation. Patient is a smoker. Review of systems: As per history of present illness and below otherwise all systems reviewed and negative. Past medical history: As per history of present illness and as reviewed below otherwise noncontributory. Surgical history: As per history of present illness and as reviewed below otherwise noncontributory. Social history: No reported history of drug or alcohol abuse. Family history: As per history of present illness and as reviewed below otherwise noncontributory. Physical exam: General: Developed and well-nourished 32-year-old male. Alert and oriented. Nontoxic appearing and in no acute distress. HEENT: Atraumatic, normocephalic, pupils equal and reactive bilaterally, negative for conjunctival pallor or scleral icterus, mucous membranes moist, mild erythema to posterior oropharynx otherwise throat clear, axillary sinus pressure with palpation bilaterally, neck supple, nontender, trachea midline. No drooling or trismus noted. No meningeal signs Lungs: Clear to auscultation without, breath sounds equal bilaterally, chest nontender. Dry harsh nonproductive cough noted. Heart: S1S2, regular rate and rhythm without overt murmur Abdomen: Soft, nondistended, nontender. Negative for masses or hepatosplenomegaly. Negative for costovertebral tenderness. Pelvis: Stable nontender. Genitourinary: Deferred. Rectal: Deferred. Skin: Intact, warm, dry. No lesions or rashes noted. Extremities: Atraumatic, negative for cords or calf pain. Neurovascular unremarkable. Neuro: Awake, alert, oriented. Cranial nerves II through XII unremarkable. Cerebellum unremarkable. Motor and sensory unremarkable throughout. Exam nonfocal. Notes: Patient does not appear to have any abscess although there is some dental decay. Without fever at this time. Due to the patient's longevity of symptoms, history of smoking and current presentation I will place him on Augmentin and give Phenergan with codiene. Supportive care measures were reviewed with the patient. He voices understanding and is agreeable to plan of care. He denies any further questions at this time. Diagnostics: [] Therapeutics: [] Impression: Sinusitis Plan: 1. Please take the antibiotic as prescribed. 2. Tylenol and/or ibuprofen as needed for pain management. Phenergan with codeine for nighttime use. This medication may cause drowsiness a do not take it will driving or needing to be functioning outside of the house. He may continue to use [id number] Mucinex as needed. 3. Follow-up with your primary caregiver in the next 1-2 days. As we discussed a few have dental pain post antibiotic is follow-up with the dentist. Return to the ED as needed and as discussed. Definitive disposition and diagnosis as appropriate pending reevaluation and review of above. Right dental pain Pain Score (Numeric/FACES): 6 - Related Data Allergies Allergy/AdvReac Type Severity Reaction Status Date / Time No Known Allergies Allergy Verified 11/21/17 15:37 Home Meds: Home Meds Pantoprazole Sodium [Protonix] 1 tab PO DAILY 08/19/17 [History] Past Medical History HEENT History: Reports: None Cardiovascular History: Reports: None Respiratory History: Reports: None Gastrointestinal History: Reports: GERD Genitourinary History: Reports: None Neurological History: Reports: Concussion Endocrine/Metabolic History: Reports: None Hematologic History: Reports: None Oncologic (Cancer) History: Reports: None - Infectious Disease History Infectious Disease History: Reports: Chicken Pox - Past Surgical History Head Surgeries/Procedures: Reports: None Respiratory Surgical History: Reports: None Male Surgical History: Reports: None Musculoskeletal Surgical History: Reports: Other (See Below) Other Musculoskeletal Surgeries/Procedures:: surgical tx for fx hand with plate and screws Social & Family History - Family History Family Medical History: Noncontributory - Tobacco Use Smoking Status *Q: Never Smoker Years of Tobacco use: 10 Packs/Tins Daily: 1 Used Tobacco, but Quit: Yes Month/Year Tobacco Last Used: quit smoking 6 weeks ago, on nicotine patch - Caffeine Use Caffeine Use: Reports: Coffee - Alcohol Use Days Per Week of Alcohol Use: 2 Number of Drinks Per Day: 3 Total Drinks Per Week: 6 - Recreational Drug Use Recreational Drug Use: No ED ROS GENERAL - Review of Systems Review Of Systems: ROS reveals no pertinent complaints other than HPI. ED EXAM, GENERAL - Physical Exam Exam: See Below (See dictation) Course - Vital Signs Last Recorded V/S: Last Vital Signs Temp 98.0 F 11/21/17 15:38 Pulse 108 H 11/21/17 15:38 Resp 16 11/21/17 15:38 BP 121/77 11/21/17 15:38 Pulse Ox 94 L 11/21/17 15:38 Departure - Departure Time of Disposition: 16:03 Disposition: Home, Self-Care 01 Clinical Impression: Sinusitis Qualifiers: Sinusitis location: maxillary Chronicity: acute Recurrence: non-recurrent Qualified Code(s): J01.00 - Acute maxillary sinusitis, unspecified - Discharge Information Instructions: Sinusitis, Adult, [id number] Additional Instructions: The following information is given to patients seen in the emergency department who are being discharged to home. This information is to outline your options for follow-up care. We provide all patients seen in our emergency department with a follow-up referral. The need for follow-up, as well as the timing and circumstances, are variable depending upon the specifics of your emergency department visit. If you don't have a primary care physician on staff, we will provide you with a referral. We always advise you to contact your personal physician following an emergency department visit to inform them of the circumstance of the visit and for follow-up with them and/or the need for any referrals to a consulting specialist. The emergency department will also refer you to a specialist when appropriate. This referral assures that you have the opportunity for follow-up care with a specialist. All of these measure are taken in an effort to provide you with optimal care, which includes your follow-up. Under all circumstances we always encourage you to contact your private physician who remains a resource for coordinating your care. When calling for follow-up care, please make the office aware that this follow-up is from your recent emergency room visit. If for any reason you are refused follow-up, please contact the [facility] Emergency Department at and asked to speak to the emergency department charge nurse. [facility] [address] [place] [id number] 1. Please take the antibiotic as prescribed. 2. Tylenol and/or ibuprofen as needed for pain management. Phenergan with codeine for nighttime use. This medication may cause drowsiness a do not take it will driving or needing to be functioning outside of the house. He may continue to use [id number] Mucinex as needed. 3. Follow-up with your primary caregiver in the next 1-2 days. As we discussed a few have dental pain post antibiotic is follow-up with the dentist. Return to the ED as needed and as discussed.
== END 2017-11-21 16:20 | disposition home or self-care (01) ==
LOC: MW.ED 15:20
DX: J01.00 Acute maxillary sinusitis, unspecified (principal); K21.9 Gastro-esophageal reflux disease without esophagitis; Z79.899 Other long term (current) drug therapy; Z87.891 Personal history of nicotine dependence
CPT/HCPCS: 99282

== ENCOUNTER 2018-08-18 15:26 | Emergency (ER) | payer OTHER ==
[2018-08-18] MEDS ORDERED: Sodium Chloride 0.9% 2.5 ML Syringe FLUSH PRN (15:45)
[2018-08-18] MEDS ORDERED: Sodium Chloride 0.9% 10 ML Syringe FLUSH PRN (15:45)
[2018-08-18] MEDS ORDERED: Pantoprazole 40 MG Vial IVPUSH ONE (15:45)
--- NOTE | 2018-08-18 15:45 | EDM.PDOC ---
ED HPI GENERAL MEDICAL PROBLEM - General Chief Complaint: Abdominal Pain Stated Complaint: SIDE PAIN, DARK STOOL Time Seen by Provider: 08/18/18 15:39 Source of Information: Reports: Patient History Limitations: Reports: No Limitations - History of Present Illness INITIAL COMMENTS - FREE TEXT/NARRATIVE: History of present illness: []Patient complains of abdominal pain with rectal bleeding for 2 days. He has had copious watery stools in the last 2 days. Patient has had chronic abdominal pain for the last 2 years and has had EGD, colonoscopy and scans of ruled out Crohn's and colitis. Review of systems: As per history of present illness and below otherwise all systems reviewed and negative. Past medical history: As per history of present illness and as reviewed below otherwise noncontributory. Surgical history: As per history of present illness and as reviewed below otherwise noncontributory. Social history: No reported history of drug or alcohol abuse. Family history: As per history of present illness and as reviewed below otherwise noncontributory. Physical exam: General: Well developed, well nourished in NAD HEENT: Atraumatic, normocephalic, pupils reactive, negative for conjunctival pallor or scleral icterus, mucous membranes moist, throat clear, neck supple, nontender, trachea midline. Lungs: Clear to auscultation, breath sounds equal bilaterally, chest nontender. Heart: S1S2, regular, negative for clicks, rubs, or JVD. Abdomen: NABS, Soft, nondistended, nontender. Negative for masses or hepatosplenomegaly. Negative for costovertebral tenderness. Pelvis: Stable nontender. Genitourinary: Deferred. Rectal: Deferred. Extremities: Atraumatic, negative for cords or calf pain. Neurovascular unremarkable. Neuro: Awake, alert, oriented. Cranial nerves II through XII unremarkable. Cerebellum unremarkable. Motor and sensory unremarkable throughout. Exam nonfocal. Skin:warm and dry Diagnostics: CBC, chemistry, lipase, type and screen, CT abdomen and pelvis CT-negative Therapeutics: Protonix, IV fluids ED Course: Unremarkable, patient has had no diarrhea or ongoing rectal bleeding while in the ED. Impression: Rectal bleeding Prescriptions: None Plan: Take Pepcid twice a day follow up with general surgery return if symptoms worsen or change. Definitive disposition and diagnosis as appropriate pending reevaluation and review of above. Right Upper Abdominal Pain Score (Numeric/FACES): 6 - Related Data Allergies Allergy/AdvReac Type Severity Reaction Status Date / Time No Known Allergies Allergy Verified 08/18/18 15:41 Home Meds: Home Meds Ibuprofen 800 mg PO TID 08/18/18 [History] Past Medical History HEENT History: Reports: None Cardiovascular History: Reports: None Respiratory History: Reports: None Gastrointestinal History: Reports: GERD Genitourinary History: Reports: None Neurological History: Reports: Concussion Endocrine/Metabolic History: Reports: None Hematologic History: Reports: None Oncologic (Cancer) History: Reports: None - Infectious Disease History Infectious Disease History: Reports: Chicken Pox - Past Surgical History Head Surgeries/Procedures: Reports: None Respiratory Surgical History: Reports: None Male Surgical History: Reports: None Musculoskeletal Surgical History: Reports: Other (See Below) Other Musculoskeletal Surgeries/Procedures:: surgical tx for fx hand with plate and screws Social & Family History - Family History Family Medical History: Noncontributory - Caffeine Use Caffeine Use: Reports: Coffee ED ROS GENERAL - Review of Systems Review Of Systems: ROS reveals no pertinent complaints other than HPI. ED EXAM, GI/ABD - Physical Exam Exam: See Below (See history of present illness) Course - Vital Signs Last Recorded V/S: Last Vital Signs Temp 97.7 F 08/18/18 15:36 Pulse 88 08/18/18 19:15 Resp 16 08/18/18 19:15 BP 116/84 08/18/18 19:15 Pulse Ox 100 08/18/18 19:15 - Orders/Labs/Meds Orders: Active Orders 24 hr Category Date Time Status Abdomen Pelvis w Cont [CT] Stat Exams 08/18/18 17:03 Taken Sodium Chloride 0.9% [Saline Flush] Med 08/18/18 15:45 Active 10 ml FLUSH ASDIRECTED PRN Sodium Chloride 0.9% [Saline Flush] Med 08/18/18 15:45 Active 2.5 ml FLUSH ASDIRECTED PRN Saline Lock Insert [OM.PC] Stat Oth 08/18/18 15:45 Ordered Medication Orders Sodium Chloride (Saline Flush) 10 ml FLUSH ASDIRECTED PRN PRN Reason: Keep Vein Open Sodium Chloride (Saline Flush) 2.5 ml FLUSH ASDIRECTED PRN PRN Reason: Keep Vein Open Labs: Laboratory Tests 08/18/18 08/18/18 08/18/18 Range/Units 15:53 15:53 15:53 WBC 6.45 (4.0-11.0) K/uL RBC 5.54 (4.50-5.90) M/uL Hgb 15.2 (13.0-17.0) g/dL Hct 43.9 (38.0-50.0) % MCV 79.2 L (80.0-98.0) fL MCH 27.4 (27.0-32.0) pg MCHC 34.6 (31.0-37.0) g/dL RDW Std Deviation 40.2 (28.0-62.0) fl RDW Coeff of Liliana 14 (11.0-15.0) % Plt Count 284 (150-400) K/uL MPV 9.40 (7.40-12.00) fL Neut % (Auto) 68.5 (48.0-80.0) % Lymph % (Auto) 21.7 (16.0-40.0) % Erath % (Auto) 7.6 (0.0-15.0) % Eos % (Auto) 2.0 (0.0-7.0) % Baso % (Auto) 0.2 (0.0-1.5) % Neut # (Auto) 4.4 (1.4-5.7) K/uL Lymph # (Auto) 1.4 (0.6-2.4) K/uL Erath # (Auto) 0.5 (0.0-0.8) K/uL Eos # (Auto) 0.1 (0.0-0.7) K/uL Baso # (Auto) 0.0 (0.0-0.1) K/uL Nucleated RBC % 0.0 /100WBC Nucleated RBCs # 0 K/uL INR 0.97 APTT 23.0 (18.6-31.3) SEC Sodium 136 (136-148) mmol/L Potassium 3.8 (3.5-5.1) mmol/L Chloride 102 (98-107) mmol/L Carbon Dioxide 21.6 (21.0-32.0) mmol/L BUN 11 (7.0-18.0) mg/dL Creatinine 1.0 (0.8-1.3) mg/dL Est Cr Clr Drug Dosing 96.59 mL/min Estimated GFR (MDRD) > 60.0 ml/min Glucose 104 (74-106) mg/dL Calcium 9.3 (8.5-10.1) mg/dL Total Bilirubin 0.4 (0.2-1.0) mg/dL AST 13 L (15-37) IU/L ALT 29 (14-63) IU/L Alkaline Phosphatase 61 (46-116) U/L Total Protein 7.9 (6.4-8.2) g/dL Albumin 3.9 (3.4-5.0) g/dL Globulin 4.0 (2.6-4.0) g/dL Albumin/Globulin Ratio 1.0 (0.9-1.6) Lipase 209 (73-393) U/L Blood Type Antibody Screen 08/18/18 Range/Units 15:53 WBC (4.0-11.0) K/uL RBC (4.50-5.90) M/uL Hgb (13.0-17.0) g/dL Hct (38.0-50.0) % MCV (80.0-98.0) fL MCH (27.0-32.0) pg MCHC (31.0-37.0) g/dL RDW Std Deviation (28.0-62.0) fl RDW Coeff of Liliana (11.0-15.0) % Plt Count (150-400) K/uL MPV (7.40-12.00) fL Neut % (Auto) (48.0-80.0) % Lymph % (Auto) (16.0-40.0) % Erath % (Auto) (0.0-15.0) % Eos % (Auto) (0.0-7.0) % Baso % (Auto) (0.0-1.5) % Neut # (Auto) (1.4-5.7) K/uL Lymph # (Auto) (0.6-2.4) K/uL Erath # (Auto) (0.0-0.8) K/uL Eos # (Auto) (0.0-0.7) K/uL Baso # (Auto) (0.0-0.1) K/uL Nucleated RBC % /100WBC Nucleated RBCs # K/uL INR APTT (18.6-31.3) SEC Sodium (136-148) mmol/L Potassium (3.5-5.1) mmol/L Chloride (98-107) mmol/L Carbon Dioxide (21.0-32.0) mmol/L BUN (7.0-18.0) mg/dL Creatinine (0.8-1.3) mg/dL Est Cr Clr Drug Dosing mL/min Estimated GFR (MDRD) ml/min Glucose (74-106) mg/dL Calcium (8.5-10.1) mg/dL Total Bilirubin (0.2-1.0) mg/dL AST (15-37) IU/L ALT (14-63) IU/L Alkaline Phosphatase (46-116) U/L Total Protein (6.4-8.2) g/dL Albumin (3.4-5.0) g/dL Globulin (2.6-4.0) g/dL Albumin/Globulin Ratio (0.9-1.6) Lipase (73-393) U/L Blood Type A POSITIVE Antibody Screen NEGATIVE Meds: Medications Generic Name Dose Route Start Last Admin Trade Name Freq PRN Reason Stop Dose Admin Sodium Chloride 10 ml 08/18/18 15:45 Saline Flush FLUSH ASDIRECTED PRN Keep Vein Open Sodium Chloride 2.5 ml 08/18/18 15:45 Saline Flush FLUSH ASDIRECTED PRN Keep Vein Open Discontinued Medications Generic Name Dose Route Start Last Admin Trade Name Freq PRN Reason Stop Dose Admin Sodium Chloride 1,000 mls @ 999 mls/hr 08/18/18 17:11 08/18/18 17:41 Normal Saline IV 08/18/18 18:11 999 mls/hr .Bolus ONE Administration Iopamidol 85 ml 08/18/18 17:33 08/18/18 17:34 Isovue Multipack-370 (76%) IVPUSH 08/18/18 17:34 85 ml ONETIME STA Administration Pantoprazole Sodium 80 mg 08/18/18 15:45 08/18/18 16:04 Protonix Iv IVPUSH 08/18/18 15:46 80 mg .BOLUS ONE Administration Departure - Departure Time of Disposition: 19:42 Disposition: Home, Self-Care 01 Condition: Good Clinical Impression: Rectal bleeding - Discharge Information Referrals: PCP,Unknown [Primary Care Provider] - Forms: ED Department Discharge Additional Instructions: The following information is given to patients seen in the emergency department who are being discharged to home. This information is to outline your options for follow-up care. We provide all patients seen in our emergency department with a follow-up referral. The need for follow-up, as well as the timing and circumstances, are variable depending upon the specifics of your emergency department visit. If you don't have a primary care physician on staff, we will provide you with a referral. We always advise you to contact your personal physician following an emergency department visit to inform them of the circumstance of the visit and for follow-up with them and/or the need for any referrals to a consulting specialist. The emergency department will also refer you to a specialist when appropriate. This referral assures that you have the opportunity for follow-up care with a specialist. All of these measure are taken in an effort to provide you with optimal care, which includes your follow-up. Under all circumstances we always encourage you to contact your private physician who remains a resource for coordinating your care. When calling for follow-up care, please make the office aware that this follow-up is from your recent emergency room visit. If for any reason you are refused follow-up, please contact the [facility] Emergency Department at and asked to speak to the emergency department charge nurse. Follow-up with general surgery [facility] - General Surgery Professional [address], [address] [place] [address] - My Orders Last 24 Hours: My Active Orders 08/18/18 15:45 Sodium Chloride 0.9% [Saline Flush] 10 ml FLUSH ASDIRECTED PRN Sodium Chloride 0.9% [Saline Flush] 2.5 ml FLUSH ASDIRECTED PRN Saline Lock Insert [OM.PC] Stat 08/18/18 17:03 Abdomen Pelvis w Cont [CT] Stat - Assessment/Plan Last 24 Hours: My Active Orders 08/18/18 15:45 Sodium Chloride 0.9% [Saline Flush] 10 ml FLUSH ASDIRECTED PRN Sodium Chloride 0.9% [Saline Flush] 2.5 ml FLUSH ASDIRECTED PRN Saline Lock Insert [OM.PC] Stat 08/18/18 17:03 Abdomen Pelvis w Cont [CT] Stat
[2018-08-18 16:32] LABS: CHLORIDE,CL 102 mmol/L (98-107); SODIUM,NA 136 mmol/L (136-148)
[2018-08-18] MEDS ORDERED: Sodium Chloride 0.9% 1,000 ML IV ONE (17:11)
[2018-08-18] MEDS ORDERED: Iopamidol 755 MG/ML 500 ML Multipack Bottle IVPUSH STA (17:33)
[2018-08-18 19:33] VITALS: BP 116/84
--- NOTE | 2018-08-19 10:57 | CT ---
EXAM DATE: 08/18/18 PATIENT'S AGE: 33 Patient: EARLINE CASTANEDA Facility: [place], [place] Site . Site : [id number] Study: CT Abdomen/Pelvis w cont [id number] 5:35:33 PM Ordering Physician: Adair Jimenez Final Report: INDICATION: Abdominal pain and rectal bleeding since yesterday TECHNIQUE: CT abdomen and pelvis acquired with 85 cc Isovue 370 IV contrast. COMPARISON: April 06, 2017 FINDINGS: Lower chest: Unremarkable. Liver: Unremarkable. Spleen: Unremarkable. Pancreas: Unremarkable. Gallbladder and bile ducts: Unremarkable. Adrenal glands: Unremarkable. Kidneys: Unremarkable. GI tract: Unremarkable. Appendix is normal. Vascular structures: Unremarkable. Lymph nodes: Unremarkable. Miscellaneous: Unremarkable. No free air or significant free fluid. Pelvic Organs: Unremarkable. Bones: Unremarkable for age. IMPRESSION: Unremarkable CT of the abdomen and pelvis. Please note that all CT scans at this facility use dose modulation, iterative reconstruction, and/or weight-based dosing when appropriate to reduce radiation dose to as low as reasonably achievable. Dictated by Patience Lentz MD @ Aug 18 2018 7:30PM (Electronic Signature) Report Signed by Proxy. [facility]
== END 2018-08-18 19:45 | disposition home or self-care (01) ==
LOC: MW.ED 15:26
DX: K62.5 Hemorrhage of anus and rectum (principal)
CPT/HCPCS: 36415; 74177; 80053; 83690; 85025; 85610; 85730; 86850; 86900; 86901; 96361; 96374; 99284; C9113; J7040; Q9967

== ENCOUNTER 2018-09-22 10:17 | Emergency (ER) | payer OTHER ==
[2018-09-22 10:26] VITALS: BP 115/82
--- NOTE | 2018-09-22 10:43 | EDM.PDOCBH ---
ED HPI GENERAL MEDICAL PROBLEM - General Chief Complaint: Behavioral/Psych Stated Complaint: ANXIETY Time Seen by Provider: 09/22/18 10:37 Source of Information: Reports: Patient History Limitations: Reports: No Limitations - History of Present Illness INITIAL COMMENTS - FREE TEXT/NARRATIVE: HISTORY AND PHYSICAL: History of present illness: Patient is a 33-year-old male here with complaint of anxiety and feels like he is having a "mental breakdown." He states he lost his daughter to brain cancer 4 years ago and he and his fiancee recently found out they are . He states this has been giving him a lot of anxiety in the past month. He states he is also dealing with some legal issues which contributes to his anxiety. He has never been on medication for this in the past but feels like he needs to be. He reports some feelings of depression but denies any suicidal or homicidal ideations. Review of systems: As per history of present illness and below otherwise all systems reviewed and negative. Past medical history: As per history of present illness and as reviewed below otherwise noncontributory. Surgical history: As per history of present illness and as reviewed below otherwise noncontributory. Social history: No reported history of drug or alcohol abuse. Family history: As per history of present illness and as reviewed below otherwise noncontributory. Physical exam: General: Patient sitting comfortably in no acute distress and nontoxic appearing HEENT: Atraumatic, normocephalic, pupils reactive, negative for conjunctival pallor or scleral icterus, mucous membranes moist, throat clear, neck supple, nontender, trachea midline. No meningeal signs. Lungs: Clear to auscultation, breath sounds equal bilaterally, chest nontender. Heart: S1S2, regular, negative for clicks, rubs, or overt murmur. Abdomen: Soft, nondistended, nontender. Negative for masses or hepatosplenomegaly. Negative for costovertebral tenderness. Pelvis: Stable nontender. Genitourinary: Deferred. Rectal: Deferred. Extremities: Atraumatic, negative for cords or calf pain. Neurovascular unremarkable. Neuro: Awake, alert, oriented. Cranial nerves II through XII unremarkable. Cerebellum unremarkable. Motor and sensory unremarkable throughout. Exam nonfocal. Notes: Discussed with patient that he needs to establish with a provider so that he can be started on a daily anxiety/depression medication such as an SSRI or SNRI and he should also look in to counseling. I will provided these contact numbers for him. I explained to him that I can give him a few Ativan to take when he is having severe anxiety/panic attacks but explained that this is not a medication that is recommended for daily use and only to be used in severe anxiety. He was advised not to take alcohol with his and to return to the ED should he have any suicidal or homicidal thoughts. Diagnostics: None Therapeutics: None Prescriptions: Ativan #5 Impression: Anxiety Plan: 1. Take 1/2 to 1 tab of ativan daily only as needed for severe anxiety 2. Follow up with primary care provider and counselor as instructed 3. Return to ED as needed as discussed Definitive disposition and diagnosis as appropriate pending reevaluation and review of above. - Related Data Allergies Allergy/AdvReac Type Severity Reaction Status Date / Time No Known Allergies Allergy Verified 09/22/18 10:25 Home Meds: Home Meds . [No Known Home Meds] 09/22/18 [History] Past Medical History HEENT History: Reports: None Cardiovascular History: Reports: None Respiratory History: Reports: None Gastrointestinal History: Reports: GERD Genitourinary History: Reports: None Musculoskeletal History: Reports: Other (See Below) Other Musculoskeletal History: shoulder pain Neurological History: Reports: Concussion Psychiatric History: Reports: Anxiety Endocrine/Metabolic History: Reports: None Hematologic History: Reports: None Oncologic (Cancer) History: Reports: None - Infectious Disease History Infectious Disease History: Reports: None - Past Surgical History Head Surgeries/Procedures: Reports: None Respiratory Surgical History: Reports: None Male Surgical History: Reports: None Musculoskeletal Surgical History: Reports: Other (See Below) Other Musculoskeletal Surgeries/Procedures:: surgical tx for fx hand with plate and screws Social & Family History - Family History Family Medical History: Noncontributory - Tobacco Use Smoking Status *Q: Never Smoker - Caffeine Use Caffeine Use: Reports: Coffee, Soda - Recreational Drug Use Recreational Drug Use: No ED ROS GENERAL - Review of Systems Review Of Systems: ROS reveals no pertinent complaints other than HPI. ED EXAM, BEHAVIORAL HEALTH - Physical Exam Exam: See Below (see dictation) COURSE, BEHAVIORAL HEALTH COMP - Course Vital Signs: Last Vital Signs Temp 96.6 F 09/22/18 10:23 Pulse 92 09/22/18 10:23 Resp 16 09/22/18 10:23 BP 115/82 09/22/18 10:23 Pulse Ox 94 L 09/22/18 10:23 Departure - Departure Time of Disposition: 10:43 Disposition: Home, Self-Care 01 Condition: Good Clinical Impression: Anxiety - Discharge Information Referrals: PCP,None [Primary Care Provider] - Additional Instructions: The following information is given to patients seen in the emergency department who are being discharged to home. This information is to outline your options for follow-up care. We provide all patients seen in our emergency department with a follow-up referral. The need for follow-up, as well as the timing and circumstances, are variable depending upon the specifics of your emergency department visit. If you don't have a primary care physician on staff, we will provide you with a referral. We always advise you to contact your personal physician following an emergency department visit to inform them of the circumstance of the visit and for follow-up with them and/or the need for any referrals to a consulting specialist. The emergency department will also refer you to a specialist when appropriate. This referral assures that you have the opportunity for follow-up care with a specialist. All of these measure are taken in an effort to provide you with optimal care, which includes your follow-up. Under all circumstances we always encourage you to contact your private physician who remains a resource for coordinating your care. When calling for follow-up care, please make the office aware that this follow-up is from your recent emergency room visit. If for any reason you are refused follow-up, please contact the [facility] at and asked to speak to the emergency department charge nurse. [facility] [address] [place] [id number] [facility] [address] [place] [id number] [facility] [phone] 1. Take 1/2 to 1 tab of ativan daily only as needed for severe anxiety 2. Follow up with primary care provider and counselor as instructed 3. Return to ED as needed as discussed
== END 2018-09-22 10:55 | disposition home or self-care (01) ==
LOC: MW.ED 10:17
DX: F41.9 Anxiety disorder, unspecified (principal)
CPT/HCPCS: 99283

== ENCOUNTER 2019-06-02 15:22 | Emergency (ER) | payer SELFPAY ==
[2019-06-02 15:37] VITALS: BP 100/72; PULSE 88
--- NOTE | 2019-06-02 15:44 | EDM.PDOC ---
ED HPI GENERAL MEDICAL PROBLEM - General Chief Complaint: ENT Problem Stated Complaint: BLOODY NOSE Time Seen by Provider: 06/02/19 15:42 Source of Information: Reports: Patient - History of Present Illness INITIAL COMMENTS - FREE TEXT/NARRATIVE: HISTORY AND PHYSICAL: History of present illness: []Patient presents with bloody nose bilateral epistaxis, says this began insidiously he did pass a clot which concerned him and prompted his visit he has not been bleeding for 30-60 minutes he has no other symptoms no fever nausea vomiting chills sweats no chest pain shortness breath headache dizziness palpitation no bowel or urine symptoms denies injury or trauma Does have a history of epistaxis Review of systems: As per history of present illness and below otherwise all systems reviewed and negative. Past medical history: As per history of present illness and as reviewed below otherwise noncontributory. Surgical history: As per history of present illness and as reviewed below otherwise noncontributory. Social history: No reported history of drug or alcohol abuse. Family history: As per history of present illness and as reviewed below otherwise noncontributory. Physical exam: HEENT: Atraumatic, normocephalic, pupils reactive, negative for conjunctival pallor or scleral icterus, mucous membranes moist, throat clear, neck supple, nontender, trachea midline. right red blood in the nares however no active bleed don't see anything anterior for cauterization Lungs: Clear to auscultation, breath sounds equal bilaterally, chest nontender. Heart: S1S2, regular, negative for clicks, rubs, or JVD. Abdomen: Soft, nondistended, nontender. Negative for masses or hepatosplenomegaly. Negative for costovertebral tenderness. Pelvis: Stable nontender. Genitourinary: Deferred. Rectal: Deferred. Extremities: Atraumatic, negative for cords or calf pain. Neurovascular unremarkable. Neuro: Awake, alert, oriented. Cranial nerves II through XII unremarkable. Cerebellum unremarkable. Motor and sensory unremarkable throughout. Exam nonfocal. Diagnostics: pt offered CBC INR he declined/refused ] Therapeutics: [ Diaz if symptoms persist or worsen ] Impression Epistaxis -resolved] Definitive disposition and diagnosis as appropriate pending reevaluation and review of above. - Related Data Allergies Allergy/AdvReac Type Severity Reaction Status Date / Time No Known Allergies Allergy Verified 06/02/19 15:37 Home Meds: Home Meds . [No Known Home Meds] 09/22/18 [History] Past Medical History HEENT History: Reports: Epistaxis Cardiovascular History: Reports: None Respiratory History: Reports: None Gastrointestinal History: Reports: GERD Genitourinary History: Reports: None Musculoskeletal History: Reports: Other (See Below) Other Musculoskeletal History: shoulder pain Neurological History: Reports: Concussion Psychiatric History: Reports: Anxiety Endocrine/Metabolic History: Reports: None Hematologic History: Reports: None Oncologic (Cancer) History: Reports: None - Infectious Disease History Infectious Disease History: Reports: None - Past Surgical History Head Surgeries/Procedures: Reports: None Respiratory Surgical History: Reports: None Male Surgical History: Reports: None Musculoskeletal Surgical History: Reports: Other (See Below) Other Musculoskeletal Surgeries/Procedures:: surgical tx for fx hand with plate and screws Social & Family History - Family History Family Medical History: Noncontributory - Tobacco Use Smoking Status *Q: Current Every Day Smoker Years of Tobacco use: 10 Packs/Tins Daily: 1 - Caffeine Use Caffeine Use: Reports: Coffee, Soda - Recreational Drug Use Recreational Drug Use: No ED ROS GENERAL - Review of Systems Review Of Systems: See Below ED EXAM, GENERAL - Physical Exam Exam: See Below Course - Vital Signs Last Recorded V/S: Last Vital Signs Temp 96.6 F 06/02/19 15:35 Pulse 88 06/02/19 15:35 Resp 16 06/02/19 15:35 BP 100/72 06/02/19 15:35 Pulse Ox 100 06/02/19 15:35 Departure - Departure Time of Disposition: 15:44 Disposition: Home, Self-Care 01 Condition: Good Clinical Impression: Epistaxis - Discharge Information Referrals: PCP,None [Primary Care Provider] - Additional Instructions: The following information is given to patients seen in the emergency department who are being discharged to home. This information is to outline your options for follow-up care. We provide all patients seen in our emergency department with a follow-up referral. The need for follow-up, as well as the timing and circumstances, are variable depending upon the specifics of your emergency department visit. If you don't have a primary care physician on staff, we will provide you with a referral. We always advise you to contact your personal physician following an emergency department visit to inform them of the circumstance of the visit and for follow-up with them and/or the need for any referrals to a consulting specialist. The emergency department will also refer you to a specialist when appropriate. This referral assures that you have the opportunity for follow-up care with a specialist. All of these measure are taken in an effort to provide you with optimal care, which includes your follow-up. Under all circumstances we always encourage you to contact your private physician who remains a resource for coordinating your care. When calling for follow-up care, please make the office aware that this follow-up is from your recent emergency room visit. If for any reason you are refused follow-up, please contact the [facility] emergency department at and asked to speak to the emergency department charge nurse.
== END 2019-06-02 15:56 | disposition home or self-care (01) ==
LOC: MW.ED 15:22
DX: R04.0 Epistaxis (principal); F17.210 Nicotine dependence, cigarettes, uncomplicated
CPT/HCPCS: 99282; 99283

== ENCOUNTER 2020-02-15 13:20 | Emergency (ER) | payer OTHER ==
--- NOTE | 2020-02-15 13:38 | EDM.PDOC ---
ED HPI GENERAL MEDICAL PROBLEM - General Chief Complaint: General Stated Complaint: FLU SYMPTOMS Time Seen by Provider: 02/15/20 13:25 Source of Information: Reports: Patient ([id number]) History Limitations: Reports: No Limitations - History of Present Illness INITIAL COMMENTS - FREE TEXT/NARRATIVE: HISTORY AND PHYSICAL: History of present illness: Patient is a 35-year-old male who presents to the emergency room with complaints of generalized fatigue, muscle aches, diaphoresis and mild generalized headache over the past 3 - 4 days. He is concerned he has "the flu" as he has been doing some landscaping for multiple persons. He has no known contact with anyone who is been actively ill. Describes the headache as dull and nagging, this is NOT the worse headache of his life. Dry nonproductive cough, but states it is chronic as he is a daily smoker. Unsure if he is coughing more than usual. Patient denies any injury, trauma or falls. Denies fever, neck pain/stiffness, change in vision, syncope or near syncope. Denies any chest pain, back pain, or shortness of breath. Denies any abdominal pain, nausea, vomiting, diarrhea, constipation or dysuria. Has not noted any blood in urine or stool. Patient has been eating and drinking appropriately. Review of systems: As per history of present illness and below otherwise all systems reviewed and negative. Past medical history: As per history of present illness and as reviewed below otherwise noncontributory. Surgical history: As per history of present illness and as reviewed below otherwise noncontributory. Social history: See social history for further information Family history: As per history of present illness and as reviewed below otherwise noncontributory. Physical exam: General: Well developed and well nourished 35 year old male. A&O x 3. Nontoxic appearing and in no acute distress. VSS and have been reviewed by me. HEENT: Atraumatic, normocephalic, pupils equal and reactive bilaterally, negative for conjunctival pallor or scleral icterus, mucous membranes moist, TMs normal bilaterally, throat clear, neck supple, nontender, trachea midline. No drooling or trismus noted. No meningeal signs. No hot potato voice noted. Lungs: Clear to auscultation, breath sounds equal bilaterally, chest nontender. No work of breathing, no retractions. Heart: S1S2, regular rate and rhythm without overt murmur Abdomen: Soft, nondistended, nontender. Negative for masses or costovertebral tenderness. Skin: Intact, warm, dry. No lesions or rashes noted. Extremities: Atraumatic, moves all extremities per self without difficulty or deficits, negative for cords or calf pain. Neurovascular unremarkable. Neuro: Awake, alert, oriented. Cranial nerves II through XII unremarkable. Cerebellum unremarkable. Motor and sensory unremarkable throughout. Exam nonfocal. Notes: EKG shows normal sinus rhythm with rate of 91, minimal ST elevation in anterior leads - no previous EKG to compare to. Denies any chest pain or SOB. Negative troponin with 3 day hx of current symptoms. Suspicion for cardiac injury is low. Lab work is unremarkable with the exception of elvated LFTs. We discussed the need for follow up and supportive care measures were reviewed and discussed. Voices understanding and is agreeable to plan of care. Denies any further questions or concerns at this time. Diagnostics: CBC, CMP, CPK, UA, COVID-19, EKG Therapeutics: IV fluids, Toradol Prescription: None Impression: Viral illness Elevated transaminase Plan: 1. Your lab work was within normal limits with the exception that you liver enzymes were elevated. Please try to limit your alcohol use; and have these rechecked in the next 1-2 weeks. Please use Tylenol and/or Ibuprofen as needed for pain and fever management. 2. Get plenty of Rest. Encourage fluids to prevent dehydration. 3. Please follow up with your primary care provider. Return to the ED as needed as discussed. Definitive disposition and diagnosis as appropriate pending reevaluation and review of above. generalized Pain Score (Numeric/FACES): 6 - Related Data Allergies Allergy/AdvReac Type Severity Reaction Status Date / Time No Known Allergies Allergy Verified 02/15/20 13:45 Home Meds: Home Meds . [No Known Home Meds] 09/22/18 [History] Past Medical History HEENT History: Reports: Epistaxis Cardiovascular History: Reports: None Respiratory History: Reports: None Gastrointestinal History: Reports: GERD Genitourinary History: Reports: None Musculoskeletal History: Reports: Other (See Below) Other Musculoskeletal History: shoulder pain Neurological History: Reports: Concussion Psychiatric History: Reports: Anxiety Endocrine/Metabolic History: Reports: None Hematologic History: Reports: None Oncologic (Cancer) History: Reports: None - Infectious Disease History Infectious Disease History: Reports: None - Past Surgical History Head Surgeries/Procedures: Reports: None Respiratory Surgical History: Reports: None Male Surgical History: Reports: None Musculoskeletal Surgical History: Reports: Other (See Below) Other Musculoskeletal Surgeries/Procedures:: surgical tx for fx hand with plate and screws Social & Family History - Family History Family Medical History: Noncontributory - Caffeine Use Caffeine Use: Reports: Coffee, Soda ED ROS GENERAL - Review of Systems Review Of Systems: Comprehensive ROS is negative, except as noted in HPI. ED EXAM, GENERAL - Physical Exam Exam: See Below (See dictation) Course - Vital Signs Last Recorded V/S: Last Vital Signs Temp 96.4 F L 02/15/20 13:42 Pulse 91 02/15/20 13:42 Resp 16 02/15/20 13:42 BP 94/61 02/15/20 13:42 Pulse Ox 98 02/15/20 13:42 - Orders/Labs/Meds Orders: Active Orders 24 hr Category Date Time Status EKG Documentation Completion [RC] STAT Care 02/15/20 14:08 Active CULTURE URINE [RM] Stat Lab 02/15/20 14:52 Received Labs: Laboratory Tests 02/15/20 02/15/20 02/15/20 Range/Units 14:44 14:44 14:44 WBC 9.69 (4.0-11.0) K/uL RBC 5.82 (4.50-5.90) M/uL Hgb 14.8 (13.0-17.0) g/dL Hct 44.5 (38.0-50.0) % MCV 76.5 L (80.0-98.0) fL MCH 25.4 L (27.0-32.0) pg MCHC 33.3 (31.0-37.0) g/dL RDW Std Deviation 44.6 (28.0-62.0) fl RDW Coeff of Liliana 16 H (11.0-15.0) % Plt Count 248 (150-400) K/uL MPV 10.00 (7.40-12.00) fL Neut % (Auto) 79.5 (48.0-80.0) % Lymph % (Auto) 12.3 L (16.0-40.0) % Long % (Auto) 7.3 (0.0-15.0) % Eos % (Auto) 0.6 (0.0-7.0) % Baso % (Auto) 0.3 (0.0-1.5) % Neut # (Auto) 7.7 H (1.4-5.7) K/uL Lymph # (Auto) 1.2 (0.6-2.4) K/uL Long # (Auto) 0.7 (0.0-0.8) K/uL Eos # (Auto) 0.1 (0.0-0.7) K/uL Baso # (Auto) 0.0 (0.0-0.1) K/uL Nucleated RBC % 0.0 /100WBC Nucleated RBCs # 0 K/uL Sodium 133 L (136-148) mmol/L Potassium 4.7 (3.5-5.1) mmol/L Chloride 99 (98-107) mmol/L Carbon Dioxide 25.0 (21.0-32.0) mmol/L BUN 8 (7.0-18.0) mg/dL Creatinine 0.6 L (0.8-1.3) mg/dL Est Cr Clr Drug Dosing 163.72 mL/min Estimated GFR (MDRD) > 60.0 ml/min Glucose 95 (74-106) mg/dL Calcium 8.7 (8.5-10.1) mg/dL Total Bilirubin 1.2 H (0.2-1.0) mg/dL AST 448 H (15-37) IU/L ALT 516 H (14-63) IU/L Alkaline Phosphatase 111 (46-116) U/L Creatine Kinase 146 (26-308) U/L Troponin I < 0.050 (0.000-0.056) ng/mL Total Protein 8.3 H (6.4-8.2) g/dL Albumin 3.2 L (3.4-5.0) g/dL Globulin 5.1 H (2.6-4.0) g/dL Albumin/Globulin Ratio 0.6 L (0.9-1.6) Urine Color Urine Appearance Urine pH (5.0-8.0) Ur Specific [place] (1.001-1.035) Urine Protein (NEGATIVE) mg/dL Urine Glucose (UA) (NEGATIVE) mg/dL Urine Ketones (NEGATIVE) mg/dL Urine Occult Blood (NEGATIVE) Urine Nitrite (NEGATIVE) Urine Bilirubin (NEGATIVE) Urine Urobilinogen (<2.0) EU/dL Ur Leukocyte Esterase (NEGATIVE) Urine RBC (0-2/HPF) Urine WBC (0-5/HPF) Ur Epithelial Cells (NONE-FEW) Urine Bacteria (NEGATIVE) SARS Virus RNA (PCR) (NEGATIVE) 02/15/20 02/15/20 Range/Units 14:52 15:10 WBC (4.0-11.0) K/uL RBC (4.50-5.90) M/uL Hgb (13.0-17.0) g/dL Hct (38.0-50.0) % MCV (80.0-98.0) fL MCH (27.0-32.0) pg MCHC (31.0-37.0) g/dL RDW Std Deviation (28.0-62.0) fl RDW Coeff of Liliana (11.0-15.0) % Plt Count (150-400) K/uL MPV (7.40-12.00) fL Neut % (Auto) (48.0-80.0) % Lymph % (Auto) (16.0-40.0) % Long % (Auto) (0.0-15.0) % Eos % (Auto) (0.0-7.0) % Baso % (Auto) (0.0-1.5) % Neut # (Auto) (1.4-5.7) K/uL Lymph # (Auto) (0.6-2.4) K/uL Long # (Auto) (0.0-0.8) K/uL Eos # (Auto) (0.0-0.7) K/uL Baso # (Auto) (0.0-0.1) K/uL Nucleated RBC % /100WBC Nucleated RBCs # K/uL Sodium (136-148) mmol/L Potassium (3.5-5.1) mmol/L Chloride (98-107) mmol/L Carbon Dioxide (21.0-32.0) mmol/L BUN (7.0-18.0) mg/dL Creatinine (0.8-1.3) mg/dL Est Cr Clr Drug Dosing mL/min Estimated GFR (MDRD) ml/min Glucose (74-106) mg/dL Calcium (8.5-10.1) mg/dL Total Bilirubin (0.2-1.0) mg/dL AST (15-37) IU/L ALT (14-63) IU/L Alkaline Phosphatase (46-116) U/L Creatine Kinase (26-308) U/L Troponin I (0.000-0.056) ng/mL Total Protein (6.4-8.2) g/dL Albumin (3.4-5.0) g/dL Globulin (2.6-4.0) g/dL Albumin/Globulin Ratio (0.9-1.6) Urine Color YELLOW Urine Appearance CLEAR Urine pH 6.0 (5.0-8.0) Ur Specific [place] <= 1.005 (1.001-1.035) Urine Protein NEGATIVE (NEGATIVE) mg/dL Urine Glucose (UA) NEGATIVE (NEGATIVE) mg/dL Urine Ketones NEGATIVE (NEGATIVE) mg/dL Urine Occult Blood NEGATIVE (NEGATIVE) Urine Nitrite NEGATIVE (NEGATIVE) Urine Bilirubin NEGATIVE (NEGATIVE) Urine Urobilinogen 1.0 (<2.0) EU/dL Ur Leukocyte Esterase SMALL H (NEGATIVE) Urine RBC NONE SEEN (0-2/HPF) Urine WBC 0-2 (0-5/HPF) Ur Epithelial Cells RARE (NONE-FEW) Urine Bacteria RARE (NEGATIVE) SARS Virus RNA (PCR) NEGATIVE (NEGATIVE) Meds: Medications Discontinued Medications Generic Name Dose Route Start Last Admin Trade Name Freq PRN Reason Stop Dose Admin Sodium Chloride 1,000 mls @ 999 mls/hr 02/15/20 13:44 02/15/20 13:53 Normal Saline IV 02/15/20 14:44 999 mls/hr STAT ONE Administration Ketorolac Tromethamine 30 mg 02/15/20 13:44 02/15/20 13:53 Toradol IVPUSH 02/15/20 13:45 30 mg ONETIME ONE Administration Departure - Departure Time of Disposition: 16:18 Disposition: Home, Self-Care 01 Clinical Impression: Elevated transaminase level, Viral illness - Discharge Information Instructions: Viral Illness, Adult Referrals: PCP,None [Primary Care Provider] - Forms: ED Department Discharge Additional Instructions: The following information is given to patients seen in the emergency department who are being discharged to home. This information is to outline your options for follow-up care. We provide all patients seen in our emergency department with a follow-up referral. The need for follow-up, as well as the timing and circumstances, are variable depending upon the specifics of your emergency department visit. If you don't have a primary care physician on staff, we will provide you with a referral. We always advise you to contact your personal physician following an emergency department visit to inform them of the circumstance of the visit and for follow-up with them and/or the need for any referrals to a consulting specialist. The emergency department will also refer you to a specialist when appropriate. This referral assures that you have the opportunity for follow-up care with a specialist. All of these measure are taken in an effort to provide you with optimal care, which includes your follow-up. Under all circumstances we always encourage you to contact your private physician who remains a resource for coordinating your care. When calling for follow-up care, please make the office aware that this follow-up is from your recent emergency room visit. If for any reason you are refused follow-up, please contact the [facility] Emergency Department at and asked to speak to the emergency department charge nurse. [facility] [address] [place] [address] [facility] [address] [place] [address] 1. Your lab work was within normal limits with the exception that you liver enzymes were elevated. Please try to limit your alcohol use; and have these rechecked in the next 1-2 weeks. Please use Tylenol and/or Ibuprofen as needed for pain and fever management. 2. Get plenty of Rest. Encourage fluids to prevent dehydration. 3. Please follow up with your primary care provider. Return to the ED as needed as discussed. Sepsis Event Note (ED) - Focused Exam Vital Signs: Vital Signs Temp Pulse Resp BP Pulse Ox 02/15/20 13:42 96.4 F L 91 16 94/61 98 - My Orders Last 24 Hours: My Active Orders 02/15/20 14:08 EKG Documentation Completion [RC] STAT 02/15/20 14:52 CULTURE URINE [RM] Stat - Assessment/Plan Last 24 Hours: My Active Orders 02/15/20 14:08 EKG Documentation Completion [RC] STAT 02/15/20 14:52 CULTURE URINE [RM] Stat
[2020-02-15] MEDS ORDERED: Ketorolac 30 MG/ML SDV IVPUSH ONE (13:44)
[2020-02-15] MEDS ORDERED: Sodium Chloride 0.9% 1,000 ML IV ONE (13:44)
[2020-02-15 15:00] LABS: BLOOD UREA NITROGEN,BUN 8 mg/dL (7.0-18.0); CHLORIDE,CL 99 mmol/L (98-107); GLUCOSE RANDOM 95 mg/dL (74-106); POTASSIUM,K 4.7 mmol/L (3.5-5.1); SODIUM,NA 133 mmol/L (136-148)
[2020-02-15 16:37] VITALS: BP 99/58; PULSE 96
== END 2020-02-15 16:36 | disposition home or self-care (01) ==
LOC: MW.ED 13:20
DX: B34.9 Viral infection, unspecified (principal); R74.0 Nonspecific elevation of levels of transaminase and lactic acid dehydrogenase [LDH]; Z20.828 Contact with and (suspected) exposure to other viral communicable diseases
CPT/HCPCS: 36415; 80053; 81001; 82550; 84484; 85025; 87086; 93005; 96374; 99283; 99284-25; J1885; J7030; U0002

== ENCOUNTER 2024-11-06 19:22 | Emergency (ER) | payer SELFPAY ==
[2024-11-06 20:17] LABS: BASOPHILS ABSOLUTE AUTO 0.04 K/uL (0.00-0.20); BASOPHILS PERCENT AUTO 0.7 % (0.0-1.0); EOSINOPHILS PERCENT AUTO 3.4 % (0.0-6.0); HEMATOCRIT 44.2 % (42.0-52.0); HEMOGLOBIN 14.6 g/dL (14.0-18.0); IMMATURE GRAN ABSOLUTE AUTO 0.01 K/uL (0.00-0.05); IMMATURE GRAN PERCENT AUTO 0.2 % (0.0-0.4); LYMPHOCYTES ABSOLUTE AUTO 1.33 K/uL (1.00-4.80); LYMPHOCYTES PERCENT AUTO 22.3 % (24.0-44.0); MEAN CORPUSCULAR HEMOGLOBIN 27.3 pg (28.0-32.0); MEAN CORPUSCULAR VOLUME 82.8 fL (83.0-99.0); MONOCYTES ABSOLUTE AUTO 0.57 K/uL (0.00-0.80); MONOCYTES PERCENT AUTO 9.5 % (0.0-8.0); NEUTROPHILS ABSOLUTE AUTO 3.82 K/uL (1.80-7.70); NEUTROPHILS PERCENT AUTO 63.9 % (41.0-71.0); PLATELET COUNT,PLT 300 K/uL (150-400); RED BLOOD CELL COUNT 5.34 M/uL (4.52-5.90); WHITE BLOOD CELL COUNT,WBC 5.97 K/uL (3.9-11.3)
[2024-11-06 20:39] LABS: A/G RATIO 0.8 (0.9-1.6); ALBUMIN 3.6 g/dL (3.4-5.0); BILIRUBIN TOTAL 1.2 mg/dL (0.2-1.0); CALCIUM 9.3 mg/dL (8.5-10.1); CARBON DIOXIDE,CO2 30.7 mmol/L (21.0-32.0); CREATININE 1.2 mg/dL (0.8-1.3); EST CRCL DRUG DOSING (CG) 70.57 mL/min; MAGNESIUM 1.6 mg/dL (1.8-2.4); POTASSIUM,K 4.2 mmol/L (3.5-5.1); PROTEIN TOTAL,TP 7.9 g/dL (6.4-8.2)
[2024-11-06 22:40] LABS: PRO B-TYPE NATRIUR PEPT,BNPPRO 2751 pg/mL (0-125)
[2024-11-06] MEDS ORDERED: Furosemide 80 MG Tab PO ONE (23:30)
[2024-11-07] MEDS: Furosemide 40 MG Tab PO ONE (00:18)
[2024-11-07 00:28] VITALS: BP 105/72; PULSE 86
== END 2024-11-07 00:28 | disposition home or self-care (01) ==
LOC: MW.ED 19:22
DX: I50.9 Heart failure, unspecified (principal); Z79.899 Other long term (current) drug therapy
CPT/HCPCS: 36415; 71046; 80053; 83690; 83735; 83880; 84484; 85025; 87428; 93005; 99285; A9270; 99283